=== PATIENT | male | born 1985 | race Caucasian/White ===

== ENCOUNTER 2018-07-10 18:33 | Emergency (ER) | END 2018-07-10 21:05 | disposition home or self-care (01) ==

== ENCOUNTER 2018-11-28 17:18 | Emergency (ER) | payer OTHER ==
[~2018-11-28] VITALS: Ht 167.6 cm; Wt 118.0 kg
[~2018-11-28 17:18] MED LIST: AMLO5TAB4 PO; AMOX500C2 PO; METO-448 PO; NAPR-985 PO
[2018-11-28 17:31] VITALS: BP 135/71; PULSE 94; RESP 18; Ht 167.6 cm; Wt 118.0 kg
[2018-11-28] MEDS ORDERED: KETOROLAC 30 MG INJ IM STA (19:36)
[2018-11-28] MEDS ORDERED: ALBU18HF INHALATION (23:04)
[2018-11-28] MEDS ORDERED: NAPR-985 PO (23:04)
[2018-11-28] MEDS ORDERED: ALBUTEROL HFA 8 GM INHALER INH SCH (23:14)
[2018-11-29] MEDS ORDERED: ALBUTEROL HFA 8 GM INHALER INH SCH (01:00)
--- NOTE | 2018-11-29 01:26 | ERD ---
ER Documentation Chief Complaint Chief Complaint pt is here for inhaler refill , and tooth pain HPI 33 year-old [male] coming in today with Chief Complaint: Lower jaw pain and medication refill History of Present Illness: Patient reporting lower jaw pain that has been present for weeks. Reports prior surgery to jaw years ago with placement of screws. Denies any other associated symptoms, more particularly systemic infection symptoms. "I think the hardware is causing the pain". Patient desires refill Ventolin inhaler, no acute asthma exacerbation at this time. Review of systems: All systems were reviewed and are negative except for what is indicated in the history of present illness. Past Medical History: Hypertension, asthma; positive surgical history of mandible Social History: [Patient denies tobacco, alcohol, elicit drug use] Medications: [Reviewed as documented Nursing Notes] Allergies: [NKDA] Social Concerns: Denies ROS All systems reviewed and are negative except as per history of present illness. Medications Home Meds Active Scripts Naproxen* (Naprosyn*) 500 Mg Tablet, 500 MG PO BID PRN for PAIN AND/OR INFLAMMATION, #30 TAB Prov:YNES ESPINOZA NP 11/28/18 Albuterol Sulfate* (Ventolin HFA*) 18 Gm Hfa.aer.ad, 2 PUFF INHALATION Q4H, #1 INHALER Prov:YNES ESPINOZA NP 11/28/18 Naproxen* (Naprosyn*) 500 Mg Tablet, 500 MG PO BID PRN for PAIN AND/OR INFLAMMATION, #30 TAB Prov:JOSE DE JESUS LATIF MD 07/10/18 Reported Medications Metoprolol Tartrate* (Lopressor*) 25 Mg Tab, 25 MG PO BID, #60 TAB 07/10/18 Amlodipine Besylate* (Norvasc*) 5 Mg Tablet, 5 MG PO DAILY, TAB 07/10/18 Amoxicillin* (Amoxicillin*) 500 Mg Cap, 500 MG PO Q8, #30 CAP FOR 7 DAYS, START DATE 07/08/18 07/10/18 Allergies Allergies: Coded Allergies: No Known Allergy (Unverified , 07/10/18) PMhx/Soc History of Surgery: Yes (jaw repair surgery) Anesthesia Reaction: No Hx Neurological Disorder: No Hx Respiratory Disorders: Yes (asthma) Hx Cardiac Disorders: Yes (HTN, cholesterol) Hx Psychiatric Problems: No Hx Miscellaneous Medical Probl: No Hx Alcohol Use: Yes (occasional: "about once a month") Hx Substance Use: No Hx Tobacco Use: No Smoking Status: Never smoker FmHx Family History: No diabetes, No coronary disease Physical Exam Vitals Vital Signs Date Temp Pulse Resp B/P (MAP) Pulse Ox O2 O2 Flow FiO2 Time Delivery Rate 11/28/18 98.6 94 18 135/71 98 17:31 (92) Physical Exam Const: No acute distress Head: Atraumatic, tender to palpation to right lower jaw, no erythema, no swelling, no fluctuance, no tenderness to palpation to gingiva Eyes: Normal Conjunctiva ENT: Normal External Ears, Nose and Mouth. Neck: Full range of motion. No meningismus. Resp: Clear to auscultation bilaterally Cardio: Regular rate and rhythm, no murmurs Abd: Soft, non tender, non distended. Normal bowel sounds Skin: No petechiae or rashes Back: No midline or flank tenderness Ext: No cyanosis, or edema Neur: Awake and alert Psych: Normal Mood and Affect Results 24 hrs Current Medications Medications Dose Sig/Radha Start Time Status Last (Trade) Ordered Route PRN Stop Time Admin Dose Reason Admin Ketorolac 30 mg ONCE STAT 11/28/18 DC 11/28/18 Tromethamine IM 19:36 11/28/18 20:04 (Toradol) 19:38 Albuterol 2 puff Q4H RESP 11/29/18 DC (Ventolin THERAPY INH 01:00 11/29/18 Hfa) 01:00 Albuterol 2 puff Q4H RESP 11/28/18 DC 11/28/18 (Ventolin THERAPY INH 23:14 11/28/18 23:30 Hfa) 23:33 Procedures/MDM ED course includes a thorough examination and history. ED course includes medication; ketorolac. ED course includes imaging; mandible x-ray Low suspicion for life-threatening medical emergency. Otherwise healthy patient presenting with constellation of symptoms likely representing uncomplicated jaw pain postsurgically and medication refill as characterized by history, physical exam findings [radiologic]. Mandible iMPRESSION: 1. Postoperative changes from ORIF of midline to the C O fracture repair. 2. Otherwise, normal radiographs of the mandible. No evidence of fracture. No respiratory distress, otherwise relatively well appearing and nontoxic. Patient educated on diagnoses, prescriptions {Naprosyn, Ventolin}, follow-up care, return precautions. Strict return precautions given for worsening condition; questions answered discharge. Including but not limited to reporting signs of infection, swelling, erythema, severe pain unrelieved with pain m edication; return to ER. Disposition for discharge with followup in 2-3 days with PCP/clinic. Departure Diagnosis: Primary Impression: Medication refill Additional Impression: Pain in lower jaw Condition: Stable Patient Instructions: Taking Medicine Safely Referrals: [facility] YOU HAVE RECEIVED A MEDICAL SCREENING EXAM AND THE RESULTS INDICATE THAT YOU DO NOT HAVE A CONDITION THAT REQUIRES URGENT TREATMENT IN THE EMERGENCY DEPARTMENT. FURTHER EVALUATION AND TREATMENT OF YOUR CONDITION CAN WAIT UNTIL YOU ARE SEEN IN YOUR DOCTORS OFFICE WITHIN THE NEXT 1-2 DAYS. IT IS YOUR RESPONSIBILITY TO MAKE AN APPOINTMENT FOR FOLOW-UP CARE. IF YOU HAVE A PRIMARY DOCTOR --you should call your primary doctor and schedule an appointment IF YOU DO NOT HAVE A PRIMARY DOCTOR YOU CAN CALL OUR PHYSICIAN REFERRAL HOTLINE AT IF YOU CAN NOT AFFORD TO SEE A PHYSICIAN YOU CAN CHOSE FROM THE FOLLOWING [facility] [address] [facility]. [facility] [address] [facility] [address] [facility] [address] [facility] [facility] [address] [facility]. [facility]. [address] [facility]. [facility] YOU HAVE RECEIVED A MEDICAL SCREENING EXAM AND THE RESULTS INDICATE THAT YOU DO NOT HAVE A CONDITION THAT REQUIRES URGENT TREATMENT IN THE EMERGENCY DEPARTMENT. FURTHER EVALUATION AND TREATMENT OF YOUR CONDITION CAN WAIT UNTIL YOU ARE SEEN IN YOUR DOCTORS OFFICE WITHIN THE NEXT 1-2 DAYS. IT IS YOUR RESPONSIBILITY TO MAKE AN APPOINTMENT FOR FOLOW-UP CARE. IF YOU HAVE A PRIMARY DOCTOR --you should call your primary doctor and schedule and appointment IF YOU DO NOT HAVE A PRIMARY DOCTOR YOU CAN CALL OUR PHYSICIAN REFERRAL HOTLINE AT . IF YOU CAN NOT AFFORD TO SEE A PHYSICIAN YOU CAN CHOSE FROM THE FOLLOWING [facility]: [facility] [address] [place] [address] [facility] [address] [place] [address] [facility] + [facility] [address] [place] [address] Additional Instructions: Call your primary care doctor TOMORROW for an appointment during the next 1 WEEK.Tell the secretary specialist that you were referred from this facility.See the doctor sooner or return here if your condition worsens before your appointment time. YNES ESPINOZA NP Nov 29, 2018 01:26
== END 2018-11-28 23:33 | disposition home or self-care (01) ==
LOC: FTE 17:18
DX: R68.84 Jaw pain (principal); I10 Essential (primary) hypertension; J45.909 Unspecified asthma, uncomplicated; R06.02 Shortness of breath
CPT/HCPCS: 70110; J1885; Z7610; 96372